=== PATIENT | male | born 1970 | race Two or more races ===

== ENCOUNTER 2018-11-04 09:46 | Emergency (ER) | payer MEDICAID, OTHER ==
[~2018-11-04] VITALS: Ht 170.2 cm; Wt 77.1 kg
[2018-11-04] MEDS ORDERED: METFORMIN HCL500 M1 ORAL (09:50)
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
[2018-11-04] MEDS ORDERED: IBUPROFEN600 MG ORAL (10:30)
[2018-11-04] MEDS ORDERED: NORCO 5-325 TA1 EACH ORAL (10:30)
[2018-11-04] MEDS: Norco 5mg/325mg tab ORAL ONE (10:51)
[2018-11-04 10:56] VITALS: BP 141/83
[2018-11-04 11:40] VITALS: BP 141/83
--- NOTE | 2018-11-04 13:01 | Diagnostic Imaging Report ---
Indication: Trauma, pain Technique: 2 views of the left tibia and fibula Comparison: none Findings: On the AP view, questionable irregularity of the lateral tibial plateau most likely reflects bony overlap. There is an unusual nondisplaced fracture of the midshaft fibula, best appreciated on the lateral view. Impression: Positive for midshaft fibular fracture Irregularity of the proximal lateral tibial plateau, probably artifactual as correlate with clinical findings Findings discussed by phone with Dr. Frazier in the emergency room at the time of interpretation
--- NOTE | 2018-11-04 16:39 | Diagnostic Imaging Report ---
Indication: Pelvic pain Technique: One view of the pelvis Comparison: none Findings: No acute fractures. No dislocations. Joint spaces are preserved Impression: Negative This agrees with the preliminary interpretation provided by the emergency room physician
== END 2018-11-04 11:41 | disposition home or self-care (01) ==
LOC: EDBD 09:46 → EMR 10:15
DX: S82.402A Unspecified fracture of shaft of left fibula, initial encounter for closed fracture (principal); S80.812A Abrasion, left lower leg, initial encounter; V03.99XA Pedestrian with other conveyance injured in collision with car, pick-up truck or van, unspecified whether traffic or nontraffic accident, initial encounter; Y93.01 Activity, walking, marching and hiking; Y92.414 Local residential or business street as the place of occurrence of the external cause
CPT/HCPCS: 29505; 72170; 99284

== ENCOUNTER 2018-11-05 00:39 | Emergency (ER) | payer MEDICAID, OTHER ==
[~2018-11-05] VITALS: Ht 152.4 cm; Wt 63.5 kg
[~2018-11-05 00:39] MED LIST: IBUPROFEN600 MG ORAL; METFORMIN HCL500 M1 ORAL; NORCO 5-325 TA1 EACH ORAL
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
[2018-11-05] MEDS: Norco 5mg/325mg tab ORAL ONE (02:16)
[2018-11-05 02:20] VITALS: BP 121/70
--- NOTE | 2018-11-05 02:41 | NUR ---
ED Nurse Note: PT is DC per ERMD orders. pt vital signs, status and condition is steady and has been reported to ERMD prior to Dc and are stable. pt is alert and oriented times 4. pt is able to ambulate. pt has understood and is able to teach back Dc info. pt ID band removed. pt has left with all belongings. pt is stable for Dc as per ERMD order. pt has left with all belonging, DC notes and prescrptions.
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
== END 2018-11-05 02:20 | disposition home or self-care (01) ==
LOC: EMR 01:00
DX: S82.141A Displaced bicondylar fracture of right tibia, initial encounter for closed fracture (principal); E11.9 Type 2 diabetes mellitus without complications; I10 Essential (primary) hypertension; V03.99XA Pedestrian with other conveyance injured in collision with car, pick-up truck or van, unspecified whether traffic or nontraffic accident, initial encounter; Y93.01 Activity, walking, marching and hiking; Y92.414 Local residential or business street as the place of occurrence of the external cause
CPT/HCPCS: 29505; 99284